=== PATIENT | male | born 1985 | race Caucasian/White ===

== ENCOUNTER 2018-03-26 14:10 | Emergency (ER) | payer OTHER ==
[2018-03-26] MEDS: METOCLOPRAMIDE INJ 10MG/2ML VIAL (J2765) IV (14:41)
[2018-03-26] MEDS: KETOROLAC 30 MG/ML VIAL (J1885) IV (14:41)
[2018-03-26] MEDS: NS 1,000 ML IV (15:15)
== END 2018-03-26 15:59 | disposition home or self-care (01) ==
LOC: M ED 14:10
DX: R19.7 Diarrhea, unspecified (principal); R11.0 Nausea; R51 Headache
CPT/HCPCS: J1885